=== PATIENT | male | born 1995 | race Caucasian/White ===

== ENCOUNTER 2019-09-20 01:05 | Inpatient (IN) | payer OTHER ==
[~2019-09-20] VITALS: Ht 170.2 cm; Wt 108.4 kg
[2019-09-20] VITALS (77 sets, daily range): BP systolic 38–155; BP diastolic 14–100
[2019-09-20] MEDS ORDERED: DOBUTamine 500 MG/D5W PREMIX 250 ML IV ONE ×2 (01:23→01:35)
[2019-09-20] MEDS ORDERED: AMIODARONE 150 MG/3 ML VIAL IV ONE (01:29)
[2019-09-20] MEDS ORDERED: AMIODARONE 150 MG in DEXTROSE 5% 100 ML IV ONE (01:35)
[2019-09-20] MEDS ORDERED: AMIODARONE 450 MG in DEXTROSE 5% 250 ML IV ONE (01:35)
--- NOTE | 2019-09-20 01:49 | NUR ---
0105 PATIENT BROUGHT IN BY PARAMEDICS FULL ARREST. PATIENT BEING BAGGED WITH 100% AND CPR BEING DONE. PATIENT WAS INTUBATED WITH SIZE 8 TUBE AT 22 LIP. UPON ROSC PATIENT PLACED ON VENT. AC 18 VT 550 PEEP 5 100% FIO2
[2019-09-20 01:52] LABS: EOSINOPHILS # (AUTO) 0.1 K/uL (0-0.4); HEMOGLOBIN 13.1 g/dL (12.0-18.0); MEAN CORPUSCULAR VOLUME 96.3 fL (80-94); MONOCYTES # (AUTO) 0.6 K/uL (0.8-1.0); RED CELL DISTRIBUTION WIDTH 16.1 % (11.6-13.7)
[2019-09-20 02:02] LABS: BASOPHILS % (AUTO) 0.2 % (0.0-2.0); EOSINOPHILS % (AUTO) 0.4 % (0.0-4.0); LYMPHOCYTES # (AUTO) 10.8 K/uL (2.0-11.5); MEAN CORPUSCULAR HEMOGLOBIN 30 pg (27-31); MEAN CORPUSCULAR HGB CONC 31 g/dL (33-37); MONOCYTES % (AUTO) 3.6 % (1.7-9.3); NEUTROPHILS # (AUTO) 4.3 K/uL (1.8-7.7); NEUTROPHILS % (AUTO) 27.4 % (42.2-75.2); PLATELET COUNT (AUTO) 257 K/uL (140-450); RED BLOOD CELL COUNT(AUTO) 4.45 MIL/uL (4.20-6.10)
[2019-09-20 02:12] LABS: LYMPHOCYTES % (AUTO) 68.4 % (20.5-51.1); WHITE BLOOD COUNT (AUTO) 15.8 K/uL (4.8-10.8)
[2019-09-20 02:13] LABS: HEMATOCRIT 39.3 % (36-52)
--- NOTE | 2019-09-20 02:15 | NUR ---
BASE ON X'RAY, PER DR. FALLON, ETT WAS PUSHED IN FROM 22CM @ LIP TO 26 CM. AIRWAY PATENT. PT IN NO RESPIRATORY DISTRESS. WILL CONTINUE TO MONITOR.
[2019-09-20] MEDS ORDERED: NOREPINEPHRINE 4 MG in DEXTROSE 5% 250 ML IV ONE (02:20)
[2019-09-20 02:21] LABS: ALBUMIN 2.9 g/dL (3.4-5.0); ASPARTATE AMINOTRANSFERASE 758 U/L (15-37); CARBON DIOXIDE 22.1 mmol/L (21-32); CHLORIDE 103 mmol/L (98-107); CREATININE 2.1 mg/dL (0.6-1.3); GFR ARICAN-AMERICAN 48 mL/min (>90); GLUCOSE 322 mg/dL (74-106); POTASSIUM 3.1 mmol/L (3.5-5.1); SODIUM SERUM 149 mmol/L (136-145); TOTAL BILIRUBIN 0.2 mg/dL (0.0-1.0); UREA NITROGEN, BLOOD 6 mg/dL (7-18)
[2019-09-20 02:24] LABS: SALICYLATE < 2.8 mg/dL (2.8-20.0)
[2019-09-20] MEDS ORDERED: NOREPINEPHRINE 4 MG/4 ML VIAL IV ONE ×2 (02:25)
[2019-09-20 02:27] LABS: ACETAMINOPHEN < 0.5 ug/ml (10-30)
[2019-09-20 02:34] LABS: BARBITURATE, URINE NEG. ng/ml (NEG <=200); BENZODIAZEPINE, URINE NEG. ng/mL (NEG <=200); CANNABINOID, URINE NEG. ng/mL (NEG <=50); COCAINE, URINE NEG. ng/mL (NEG <=300); OPIATE, URINE NEG. ng/mL (NEG <=2000); PHENCYCLIDINE SCREEN,URINE NEG. ng/mL (NEG <=25)
--- NOTE | 2019-09-20 02:45 | NUR ---
BASES ON ABG RESULTS RR WAS INCREASED FOR [address] FALLON. Fi02 WAS TITRATED BASED ON RT PROTOCOL. WILL CONTINUE TO MONITOR.
[2019-09-20] MEDS ORDERED: SODIUM BICARBONATE 8.4% PFS 50 MEQ/50 ML SYR IVP ONE (02:50)
[2019-09-20] MEDS ORDERED: NACL 0.9% 1,000 ML IV SCH ×2 (03:10→12:05)
[2019-09-20] MEDS ORDERED: ONDANSETRON 4 MG/2 ML VIAL IM/IVP PRN (03:10)
[2019-09-20] MEDS ORDERED: MORPHINE SULFATE 2 MG/ML SYR IVP PRN (03:10)
[2019-09-20] MEDS ORDERED: DOCUSATE SODIUM 100 MG GELCAP PO PRN (03:10)
[2019-09-20] MEDS ORDERED: ZOLPIDEM 5 MG TAB PO PRN (03:10)
[2019-09-20] MEDS ORDERED: HYDROcodone/APAP 5/325 MG 1 TAB TAB PO PRN (03:10)
[2019-09-20] MEDS ORDERED: ACETAMINOPHEN 325 MG TAB PO PRN ×2 (03:10→04:25)
[2019-09-20] MEDS ORDERED: LORazepam 2 MG/ML VIAL IM/IVP PRN (03:10)
[2019-09-20] MEDS ORDERED: POTASSIUM CHL 20 MEQ/NACL 0.9% 1,000 ML IV ONE (03:20)
[2019-09-20] MEDS ORDERED: NACL 0.9% 1,000 ML IV ONE (03:20)
[2019-09-20] MEDS ORDERED: POTASSIUM CHL 20 MEQ/ 1/2 NS 1,000 ML IV ONE ×2 (03:29→03:30)
[2019-09-20] MEDS ORDERED: LORazepam 2 MG/ML VIAL IVP PRN ×2 (04:25→11:15)
[2019-09-20] MEDS ORDERED: ONDANSETRON 4 MG/2 ML VIAL IVP PRN (04:25)
[2019-09-20] MEDS ORDERED: SODIUM BICARBONATE 8.4% PFS 50 MEQ/50 ML SYR IVP SCH (04:35)
[2019-09-20] MEDS ORDERED: PROPOFOL 1000 MG/100 ML PREMIX 100 ML IV ONE ×2 (04:41→04:50)
[2019-09-20] MEDS ORDERED: LEVOFLOXACIN 750 MG/D5W PREMIX 150 ML IV SCH (05:00)
--- NOTE | 2019-09-20 05:27 | NUR ---
[address] CHA. CHANGE VENT SETTINGS TO AC 20 VT 450 PEEP 5 50%FIO2
--- NOTE | 2019-09-20 05:30 | NUR ---
RECEIVED PT FROM ED NURSE CALVIN. PT NON RESPONSIVE @ THIS TIME BILATERAL EYES FIXED DILATED@ THIS TIME. 8.0ETT TO VENT @ 26 CM. LUNGS DIMINISHED, AYALA IN PLACE CLEAR YELLOW URINE. SKIN INTACT. PROPOFOL DRIP @ 5 MCG/KG/MIN @ THIS TIME. LEVOPHED DRIP @ 2 MCG/KG/MIN VIA R AC AMIODARONE DRIP RUNNING @ 1 MG/MIN PER PROTOCOL VIA L AC R LEG IO IN PLACE WITH IVF INFUSING . BED LOCKED IN LOWEST POSITION
--- NOTE | 2019-09-20 05:33 | NUR ---
0515 PATIENT TRANSFERRED TO ICU 3 VIA BAGGING. PLACED PT BACK ON VENT AC 20 VT 450 PEEP 5 AT 50%
--- NOTE | 2019-09-20 07:30 | NUR ---
BEDSIDE REPORT RECIEVED FROM CUTTING MACHINE OPERATOR NURSE, PT SEDATED ON PROPOFOL 15MCG/KG/MIN, PUPILS FIXED AND DILATED AT 6MM, NO REFLEX NOTED, DOES NOT RESPOND TO PAIN, ON ECOLOGICAL RISK ASSESSOR AFIB AT HR 144, BP 117/72, RR 20, 100% O2SAT, ETT TO VENT, 8FR, 26CM AT LIP, AC 40% FIO2, VT 450, RR 20, PEEP 5, BREATH SOUNDS CLEAR BILAT, OGT IN PLACE, ABD SOFT, NON DISTENDED, AYALA CATH DRAINING TO GRAVITY, PIV TO RAC 18G, LAC 18G, IO IN PLACE TO R LOWER EXT, PROPOFOL, LR AT 100ML/HR, AMIODARONE DRIP AT 1MG/MIN (33.33ML/HR), POC REVIEWED, ALL SAFETY MEASURES IN PLACE, WILL CONTINUE TO MONITOR.
[2019-09-20] MEDS: LACTATED RINGERS 1,000 ML IV SCH ×2 (07:50→14:25)
--- NOTE | 2019-09-20 08:15 | NUR ---
DR APPIAH AT BEDSIDE
[2019-09-20] MEDS ORDERED: DILTIAZEM 25 MG/5 ML VIAL IVP ONE ×2 (08:29→11:25)
--- NOTE | 2019-09-20 08:35 | NUR ---
CARDIZEM IVP GIVEN FOR AFIB RVR HR 138, BP113/73
--- NOTE | 2019-09-20 08:37 | NUR ---
PROPOFOL TITRATED DOWN TO 10MCG/MIN (4.62ML/HR) FOR RASS -4 Addendum: 09/20/19 at 2052 by Emely Garvin RN LATE ENTRY SATHYA ASIF -
--- NOTE | 2019-09-20 08:55 | NUR ---
MOTHER AT BEDSIDE
--- NOTE | 2019-09-20 09:00 | NUR ---
LATE ENTRY MEDITECH DOWN - PROPOFOL DECREASED TO 5MCG/MIN (2.31ML/HR) FOR RASS -4
[2019-09-20] MEDS ORDERED: LORazepam 2 MG/ML VIAL ONE (09:54)
--- NOTE | 2019-09-20 09:55 | NUR ---
ATIVAN GIVEN 2MG IVP FOR HR 172 POSSIBLE ETOH WITHDRAW
--- NOTE | 2019-09-20 10:24 | NUR ---
RADIOLOGY CRITICAL REPORT FROM DR KAHN TAKEN BY NURSE BLACK, + SUBARACHNOID BLEED DR APPIAH PAGED
--- NOTE | 2019-09-20 10:30 | NUR ---
KEPPRA 500MG IVPB STARTED
--- NOTE | 2019-09-20 10:34 | NUR ---
CALLED MOTHER AND NOTIFIED HER OF PLAN TO TRANSFER TO HIGHER LEVEL OF CARE FOR BLEED
--- NOTE | 2019-09-20 10:35 | NUR ---
DR APPIAH NOTIFIED OF CT RESULT, TRANSFER TO HIGHER LEVEL OF CARE ORDERED.
--- NOTE | 2019-09-20 10:40 | NUR ---
DR FUENTES AT BEDSIDE
--- NOTE | 2019-09-20 10:51 | NUR ---
DR SIMONS CALLED, CT HEAD RESULT REPORTED, EEG ORDERED, NOTIFIED OF PLAN TO TRANSFER TO HIGHER LEVEL OF CARE.
--- NOTE | 2019-09-20 10:54 | NUR ---
DISCHARGE PLANNING: RECEIVED AN ORDER TO TRANSFER FOR HIGHER LEVEL OF CARE FOR SUBARACHNOID HEMORRHAGE. ORDER AND CLINICALS FAXED TO [facility], [facility], [facility], [facility] AND [facility]. CONTACTED [facility] AT [phone], ABLE TO SPEAK TO LARA. PROVIDED HIM ALL THE INFORMATION HE NEEDED. HE STATED HE WILL OPEN THE CASE AND TO GO AHEAD AND FAX REFERRAL TO [phone]. CONTACTED [facility] AT [phone], ABLE TO SPEAK TO JAYLON. SHE CONFIRMED THAT SHE RECEIVED THE REFERRAL. PROVIDED HER MORE INFORMATION REGARDING THE PATIENT. I ALSO PROVIDED HER OF DR. APPIAH'S CELL PHONE NUMBER [phone]. KARINE OF [facility] MADE AWARE. Addendum: 09/20/19 at 1147 by Lisa Abarca CONTACTED [facility] TRANSFER CENTER AT [phone], ABLE TO SPEAK TO DANE. SHE STATED SHE DID NOT GET THE PACKET YET BUT WILL CALL ME BACK ONCE RECEIVED. CONTACTED [facility] AT [phone], ABLE TO SPEAK TO [facility]. SHE CONFIRMED THAT THEY RECEIVED THE REFERRAL HOWEVER THEY DO NOT HAVE BEDS AT THIS TIME. Addendum: 09/20/19 at 1208 by Lisa Abarca CM PER KARINE OF [facility], OK TO SEND REFERRAL TO [facility]. REFERRAL SENT TO [facility] AT [phone]. WILL FOLLOW UP. Addendum: 09/20/19 at 1217 by Lisa Abarca CM PER JAYLON OF [facility], THEY ARE DECLINING THE CASE 2/2 TO ANOXIC BRAIN INJURY AND THEIR IS NOTHING THEY CAN DO TO THIS PATIENT. SHE ALSO STATED THAT SHE SPOKE TO DR. APPIAH WELL. Addendum: 09/20/19 at 1237 by Lisa Abarca CM LUZ MARINA AT [facility] CONFIRMED THAT THEY HAVE RECEIVED THE REFERRAL. PROVIDED HER WITH AUTH NUMBER [id number]. SHE STATED SHE WILL START REFERRING THIS CASE. AND WILL CALL ME BACK FOR UPDATES. RECEIVED A CALL FROM SHANNON OF [facility], GETTING MORE INFORMATION REGARDING THIS PATIENT. PROVIDED HER WITH THE AUTH WELL. WILL FOLLOW UP. Addendum: 09/20/19 at 1322 by Lisa Abarca CM RECEIVED A CALL FROM ICU CHARGE NURSE INFORMING ME THAT DR. APPIAH WANTS TO CANCEL THE ORDER. SHE STATED THAT DR. SIMONS DISCUSSED THE EEG RESULTS TO DR APPIAH. WILL WAIT FOR ORDER TO CANCEL REFERRALS Addendum: 09/20/19 at 1436 by Lisa Abarca CM KARINE OF [facility] MADE AWARE. Addendum: 09/21/19 at 1137 by Lisa Abarca LATE ENTRY FOR 09/20/2019: LUZ MARINA OF [facility], RENETTA OF [facility], LARA OF [facility] AND JAYLON OF [facility] MADE AWARE. Addendum: 09/21/19 at 1612 by Lisa Abarca CM THIS IS A 23 Y/O MALE PATIENT FROM HOME, WHO CAME IN DUE TO CARDIAC ARREST. PAST MEDICAL HISTORY INCLUDE ETOH ABUSE. INITIAL DIAGNOSIS OF CARDIAC ARREST. CURRENT LABS INCLUDE WBC 19.8, H/H 14.6/45.9, NA/K 143/5.2, BUN/CREA 31/3.6, MAG 1.9, ALB 2.6 AND TROP 8.734. SPUTUM C/S AND MRSA NARES PENDING. NEURO, ID AND NEPHRO CONSULTS IN PLACE. ON AMIODARONE AND LEVOPHED DRIP. ORALLY INTUBATED, FIO2 40%. FC AND CENTRAL IN PLACE. Addendum: 09/22/19 at 1158 by Lisa Abarca 0913: RECEIVED A CALL FROM RANJEET (WIRE WRAPPER MACHINE OPERATOR) INFORMING ME THAT FAMILY FOR ICU3 WANTED TO SPEAK TO ME. MET WITH HER AT THE ICU LOBBY TOGETHER WITH JANICE (CM ACCOUNTING MACHINE MECHANIC). SHE STATED THAT SHE WANTS THE PATIENT TRANSFERRED TO ANOTHER HOSPITAL. SHE ALSO STATED THAT [facility] HAVE BEDS AVAILABLE. I ASKED IF WHO IN [facility] DID THEY SPEAK TO. SHE STATED SOMEONE INSIDE. I WENT IN ICU AND SPOKE TO PATIENT'S BEST FRIEND RYLEE AND PATIENT'S MOTHER'S BOYFRIEND. I ASKED THEM IF WHO DID THEY SPEAK TO AT [facility]. RYLEE (BEST FRIEND) STATED THAT HE HAVE NOT REACHED OUT TO [facility]. I EXPLAINED IT TO THEM THAT WE HAVE A PROCESS TO FOLLOW FOR TRANSFER AND IS ABLE TO VERBALIZE UNDERSTANDING. I DISCUSSED WITH HIM THAT NEUROLOGIST AND BATTER SCALER HAVE DISCUSSED THIS WITH THE PATIENT'S PARENTS AND SISTER. I ALSO INFORMED HIM THAT I CANNOT DISCUSS ANYTHING FURTHER WITH HIM THE CASE BECAUSE HE'S NAME IS NOT ON OUR LIST. 1010: RECEIVED ANOTHER CALL FROM RANJEET (WIRE WRAPPER MACHINE OPERATOR) THAT THE FAMILY IS REQUESTING AGAIN TO SPEAK TO ME AND THEY ARE WAITING IN THE [place]. WENT IN THE [place] AND SPOKE TO THE PATIENT'S MOTHER ALPESH. I INFORMED HER THAT I DO NOT HAVE ANY UPDATES FOR HER YET. THAT I AM STILL WAITING FOR THE DOCTOR TO MAKE HIS ROUNDS. 1100: RECEIVED A CALL FROM ICU CHARGE NURSE THAT DR. APPIAH IS IN THE UNIT AT THIS TIME. I DISCUSSED THE FAMILY'S WISHES TO TRANSFER THE PATIENT TO ANOTHER HOSPITAL DESPITE ALL THE EXPLANATIONS PROVIDED TO THEM. PER DR. APPIAH, THERE NO NEED TO TRANSFER THE PATIENT TO A HIGHER LEVEL OF CARE RE: POOR PROGNOSIS. HE ALSO STATED THAT HE HAD DISCUSSED SEVERAL TIMES TO THE PARENTS AND SISTER THE CASE, HOWEVER THE MOTHER IS STILL INSISTING. PER DR APPIAH, THE RECENT EEG SHOWED WORST THAN THE PREVIOUS EEG, AND DOES NOT THINK ANY FACILITY OR PHYSICIAN WILL ACCEPT THE CASE. 1120: CONTACTED KARINE OF [facility] AND INFORMED HER OF THE CASE. SHE STATED ON THEIR STAND POINT THEY CAN REFER THE PATIENT FOR LTACH OR HOSPICE. SHE SAID SHE CAN SEND A HOSPICE REP TO SPEAK TO THE FAMILY. 1130: RECEIVED A CALL FROM KARINE OF [facility], INFORMING THAT SHE SPOKE TO DR. APPIAH STATING THAT ONCE THE PATIENT IS TAKING OUT THE VENT, PATIENT WILL . Addendum: 09/23/19 at 1523 by Lisa Abarca 1450: MET WITH THE PATIENT'S SISTER DECLAN AT THE BEDSIDE WITH DR. SNOW, ICU CHARGE NURSE. ALL HER CONCERNS AND QUESTIONS WERE ANSWERED BY DR. SNOW. SHE ASKED WELL ABOUT THE TIME FRAME THE PATIENT WAS BROUGHT TO THE HOSPITAL, BECAUSE FROM HER UNDERSTANDING 911 WAS CALLED AT 2100 AND THE PATIENT WAS BROUGHT IN AT 0100. CHARGE NURSE SHOWED THE RECORDED TIME ON THE [facility] REPORT. SHE STATED "HONESTLY, TO TELL YOU GUYS, I KNOW THAT MY BROTHER IN NOT THERE ANYMORE. BUT MY MOM FEELS DIFFERENTLY. SHE FEELS THAT SHE WILL HAVE CLOSURE IF EVERYTHING HAS BEEN DONE FOR MY BROTHER." "I WILL TELL HER EVERYTHING THAT WE SPOKE ABOUT." SHE ALSO STATED "I WILL LET YOU KNOW WHAT SHE SAYS OR IF SHE WANT TO TALK TO YOU GUYS." AND STATED "THANK YOU FOR ALL THE INFORMATION YOU PROVIDED ME, AT LEAST NOW EVERYTHING HAVE BEEN ANSWERED." I PROVIDED HER WITH MY CONTACT INFO. Addendum: 09/23/19 at 1809 by Lisa Abarca CM REFERRAL SENT TO [facility] AT [phone]. THAIS HINES MADE AWARE. Addendum: 09/26/19 at 0839 by Lisa Abarca CM RECEIVED A VOICEMAIL FROM [facility]IA [facility], STATING THAT THE ARE DECLINING THE CASE DUE TO THEY ARE NOT CONTRACTED WITH THE INSURANCE.
[2019-09-20] MEDS ORDERED: DILTIAZEM 125 MG in DEXTROSE 5% 100 ML IV SCH ×2 (10:55→11:00)
[2019-09-20] MEDS ORDERED: MULTIVITAMIN-12 10 ML, THIAMINE 100 MG, MAGNESIUM SULFATE 50% 2,000 MG, FOLIC ACID 1 MG... IV SCH ×5 (10:55)
[2019-09-20] MEDS ORDERED: POTASSIUM CHLORIDE 20% 40 MEQ/15 ML UDC GT ONE (11:05)
[2019-09-20] MEDS ORDERED: PROPOFOL 1000 MG/100 ML PREMIX 100 ML IV PRN (11:10)
[2019-09-20] MEDS ORDERED: ACETAMINOPHEN 650 MG/20.3 ML UDC NG PRN (11:20)
--- NOTE | 2019-09-20 11:20 | NUR ---
RECTAL TEMP 103.4, WILL GIVE TYLENOL, ICE PACKS APPLIED, COLD BATH GIVEN
--- NOTE | 2019-09-20 11:30 | NUR ---
TEMP 103.4 RECTALLY, ICE PACK PLACED, TYLENOL GIVEN, URINE OUTPUT DECREASED ONLY 5ML LAST HOUR, DR TD TRAN.
[2019-09-20] MEDS ORDERED: CRUSHER, PILL MC ONE (11:40)
--- NOTE | 2019-09-20 12:00 | NUR ---
NS BOLUS STARTED PER DR APPIAH, COOL BATH GIVEN, COOLING BLANKET PLACED SET AT 95.0, RECTAL TEMP PROBE PLACED TEMP 105.0 AT THIS TIME.,
[2019-09-20] MEDS ORDERED: PANTOPRAZOLE 40 MG INJ VIAL IVP SCH (12:22)
--- NOTE | 2019-09-20 12:26 | NUR ---
SWEET DOUGH MIXER AT BEDSIDE
--- NOTE | 2019-09-20 13:27 | NUR ---
DR SIMONS AT BEDSIDE FOR EVAL, EEG COMPLETED
--- NOTE | 2019-09-20 13:28 | NUR ---
ECHO CARDIOGRAM TECH AT BEDSIDE
[2019-09-20 13:31] LABS: ANION GAP 32.8 (8-16); CARBON DIOXIDE 15.6 mmol/L (21-32); CREATININE 2.8 mg/dL (0.6-1.3); POTASSIUM 3.4 mmol/L (3.5-5.1)
--- NOTE | 2019-09-20 13:40 | NUR ---
CARDIZEM DRIP STARTED HR 133 AT THIS TIME
[2019-09-20 14:05] LABS: APPEARANCE,URINE CLEAR (CLEAR); BILIRUBIN,URINE NEGATIVE (NEGATIVE); BLOOD, URINE 3+ (NEGATIVE); COLOR,URINE YELLOW (YELLOW); LEUKOCYTE ESTERASE ,URINE TRACE (NEGATIVE); NITRITE, URINE NEGATIVE (NEGATIVE); UGLUCOSE NEGATIVE (NEGATIVE)
[2019-09-20 14:11] LABS: RBC,URINE 11-20 (MOD) /HPF (0-5)
[2019-09-20 14:12] LABS: HYALINE CASTS, URINE 0-10 /LPF (None Seen); WBC,URINE 0-5 /HPF (0-5)
--- NOTE | 2019-09-20 14:30 | NUR ---
DR APPIAH CALLED AND NOTIFIED OF INCREASED HR 145, DECREASED BP, WILL NOTIFY DR FUENTES PER DR APPIAH
--- NOTE | 2019-09-20 15:23 | NUR ---
SPOKE TO RN KIMBERLEY, FNS SERVICES NOT NEEDED AT THE MOMENT, PLEASE CONTACT RD IF THERE ARE ANY CHANGES IN STATUS. GARC[address]A [address]
--- NOTE | 2019-09-20 15:53 | NUR ---
DR FUENTES CALLED REPORTED DECREASED BP. ORDER FOR NEOSYNEPHRINE ORDERED
[2019-09-20] MEDS ORDERED: PHENYLEPHRINE 10 MG/ML VIAL IV ONE (15:55)
[2019-09-20] MEDS ORDERED: PHENYLEPHRINE 10 MG/ML VIAL IV PRN (16:00)
[2019-09-20] MEDS ORDERED: NOREPINEPHRINE 4 MG in DEXTROSE 5% 250 ML IV PRN (16:15)
[2019-09-20] MEDS ORDERED: PHENYLEPHRINE 10 MG in NACL 0.9% 250 ML IV PRN (16:20)
--- NOTE | 2019-09-20 18:00 | NUR ---
CENTRAL LINE PLACED TO RIGHT IJ BY DR APPIAH.
--- NOTE | 2019-09-20 18:12 | NUR ---
DR APPIAH AND MOTHER/FATHER/SISTER DISCUSSING CONDITION AND POC.
[2019-09-20] MEDS: NOREPINEPHRINE 16 MG in DEXTROSE 5% 250 ML IV PRN (19:05)
[2019-09-20] MEDS: PHENYLEPHRINE 40 MG in NACL 0.9% 250 ML IV PRN (19:06)
--- NOTE | 2019-09-20 19:20 | NUR ---
REPORT RECEIVED FROM AM NURSE AT BEDSIDE. PT IS IN UNSTABLE CONDITION, COMATOSE, UNRESPONSIVE, AND VEGETATIVE STATE. AAOX0 WITH PUPILS FIXED AND COMPLETELY DILATED. NO RESPONSE TO VERBAL, PHYSICAL, OR PAIN. PT UNABLE TO RESPOND TO PAIN. PT HAD A SUBARACHNOID HEMORRHAGE AND ENOXIC BRAIN INJURY. NO SOB ON ET TUBE 8FR TO MECHANICAL VENTILATOR. VENT SETTINGS ARE A/C FIO2@40%, VT 450, RR 15, PEEP 5. AFEBRILE@98.8. PT FALL RISK, PT HAS RECTAL TUBE, PT HAS AYALA WITH LOW URINE OUTPUT. NG TUBE@LOW INTERMITTENT SUCTIONING. PT IV R WRIST 20G RUNNING LR@100ML/HR AND BANANA BAG@100ML/HR PATENT AND INTACT. IO SL PATENT AND INTACT. L HAND 20G SL PATENT AND INTACT. R AC 18G RUNNING AMIODARONE@0.5ML/HR PATENT AND INTACT. L AC 18G SL PATENT AND INTACT. R IJ TRIPLE LUMEN CENTRAL LINE RUNNING ZOFIA-SYNEPHRINE@150MCG/MIN AND LEVOPHED@30MCG/MIN. 3RD LINE SL ALL PATENT AND INTACT. SKIN WARM, DRY, AND INTACT WITH NO OPEN WOUNDS. BED LOCKED IN LOW POSITION. SAFETY PRECAUTION IN PLACE. Addendum: 09/20/19 at 2323 by Graham Marrufo RN PT HAS RECTAL THERMOMETER NOT RECTAL TUBE.
[2019-09-20] MEDS: levETIRAcetam 500 MG in NACL 0.9% 100 ML IV SCH (20:10)
--- NOTE | 2019-09-20 20:10 | NUR ---
JOHN MCNEILL AND RUNNING. PT TOLERATING WELL.
--- NOTE | 2019-09-20 21:30 | NUR ---
FAMILY AND FRIENDS VISITING PATIENT. PT IS UNRESPONSIVE AND COMATOSE.
--- NOTE | 2019-09-20 22:50 | NUR ---
ZOFIA TITRATED DOWN DUE TO BP MAINTAINED>90SBP. BP 112/70 AND HR 112. WILL CONTINUE TO MONITOR.
--- NOTE | 2019-09-20 23:00 | NUR ---
CALLED Ezekiel NORMAN ABOUT CONTINUATION OF AMIODARONE. INFORMED HIM PT IS IN A SINUS RHYTHM AND HIS HR IS BETTER CONTROLLED AROUND 110-115BPM. MD ORDERED TO CONTINUE AMIODARONE UNTIL EXPIRES.
[2019-09-20] MEDS ORDERED: AMIODARONE 450 MG/9 ML VIAL IV ONE (23:29)
[2019-09-21] VITALS (100 sets, daily range): BP systolic 104–143; BP diastolic 53–87
[2019-09-21] MEDS: AMIODARONE 450 MG in DEXTROSE 5% 250 ML IV SCH ×2 (00:24→14:44)
--- NOTE | 2019-09-21 00:24 | NUR ---
NEW AMIODARONE BAG HUNG AND RUNNING.
[2019-09-21] MEDS: PHENYLEPHRINE 40 MG in NACL 0.9% 250 ML IV PRN (00:27)
--- NOTE | 2019-09-21 00:27 | NUR ---
NEW BAG ZFOIA HUNG AND RUNNING.
--- NOTE | 2019-09-21 00:35 | NUR ---
ZOFIA TITRATED DOWN DUE TO BP MAINTAINED>90SBP. BP 130/78 AND HR 111. WILL CONTINUE TO MONITOR.
--- NOTE | 2019-09-21 02:20 | NUR ---
ZOFIA ON HOLD DUE TO SBP MAINTAINED>90. CURRENT BP 130/80 AND HR 111. WILL CONTINUE TO MONITOR.
[2019-09-21] MEDS: NOREPINEPHRINE 16 MG in DEXTROSE 5% 250 ML IV PRN (04:00)
--- NOTE | 2019-09-21 04:00 | NUR ---
NEW BAG WALTER HUNG AND RUNNING. WILL CONTINUE TO MONITOR.
--- NOTE | 2019-09-21 05:30 | NUR ---
PT CLEANED AND TURNED.
--- NOTE | 2019-09-21 05:35 | NUR ---
IO IV REMOVED.
[2019-09-21 05:55] LABS: HEMATOCRIT 45.9 % (36-52); HEMOGLOBIN 14.6 g/dL (12.0-18.0); MEAN CORPUSCULAR HEMOGLOBIN 29 pg (27-31); MEAN CORPUSCULAR HGB CONC 32 g/dL (33-37); MEAN CORPUSCULAR VOLUME 92.1 fL (80-94); PLATELET COUNT (AUTO) 255 K/uL (140-450); RED BLOOD CELL COUNT(AUTO) 4.99 MIL/uL (4.20-6.10); RED CELL DISTRIBUTION WIDTH 16.2 % (11.6-13.7)
--- NOTE | 2019-09-21 05:55 | NUR ---
LEVO TITRATED DOWN DUE TO MAINTAINED SBP>90. BP 127/75. LEVO TITRATED TO 28MCG/MIN OR 26.25ML/HR.
[2019-09-21] MEDS: LACTATED RINGERS 1,000 ML IV SCH ×2 (06:00→15:37)
[2019-09-21 06:38] LABS: ANION GAP 13.8 (8-16); CARBON DIOXIDE 29.4 mmol/L (21-32); CREATININE 3.6 mg/dL (0.6-1.3); POTASSIUM 5.2 mmol/L (3.5-5.1); TOTAL BILIRUBIN 0.2 mg/dL (0.0-1.0)
[2019-09-21 06:39] LABS: ALBUMIN 2.6 g/dL (3.4-5.0)
[2019-09-21 06:49] LABS: WHITE BLOOD COUNT (AUTO) 19.8 K/uL (4.8-10.8)
[2019-09-21 06:58] LABS: LYMPHOCYTES % (MANUAL) 32 % (20-46); MONOCYTES % (MANUAL) 9 % (5-12)
--- NOTE | 2019-09-21 07:14 | NUR ---
REPORT GIVEN TO AM NURSE AT BEDSIDE. PT STILL UNRESPONSIVE.
--- NOTE | 2019-09-21 07:15 | NUR ---
RECEIVED REPORT FROM CANDY STARCH MOLD PRINTER NURSE MAURICIO AT BEDSIDE. PT IS IN VEGETATIVE STATE. PUPIL FIXED AND DILATED, NOT REACTIVE TO LIGHT. PT ETT SIZE 8 TO VENT WITH SETTING FIO2 40%, VT 450, RR15, PEEP 5. NO RESPONSE TO PAIN. FLACC 0. RECTAL TEMP 98.7. AYALA CATH IN PLACE, DRAINING CLEAR YELLOW URINE WITH SEDIMENTS. OGT TO LOW INTERMITTENT SUCTIONING. IV CATH R WRIST 20G AND LEFT HAND 20G, SL. DC'D IV CATH ON THE LEFT AC, TIP INTACT, PRESSURE APPLIED. R AC 18G RUNNING AMIODARONE AT 0.5ML/HR PATENT AND INTACT. R IJ TRIPLE LUMEN CENTRAL LINE, PATENT AND DRESSING INTACT, RUNNING LEVOPHED AT 28MCG/MIN. BED LOCKED IN LOWEST POSITION. FALL AND SAFETY PRECAUTION IN PLACE.
--- NOTE | 2019-09-21 08:00 | NUR ---
BED BATH GIVEN. REPOSITIONED PT, AND PLACED PT ON SCDS. Addendum: 09/21/19 at 1018 by Sunil Hagen RN HEELS ELEVATED WITH PILLOW.
--- NOTE | 2019-09-21 09:01 | NUR ---
ASKED DR APPIAH IF HE NEEDS TO ORDER ANY ABX, DR APPIAH REVIEWED PT'S CHART AND SAID NO.
--- NOTE | 2019-09-21 09:01 | NUR ---
DR APPIAH CAME AND ASSESSED PT. Addendum: 09/21/19 at 1024 by Sunil Hagen RN MADE DR APPIAH AWARE WBC ELEVATED.
[2019-09-21] MEDS: PANTOPRAZOLE 40 MG INJ VIAL IVP SCH (09:13)
[2019-09-21] MEDS: ASPIRIN 81 MG TAB.CHEW PO SCH (09:14)
[2019-09-21] MEDS: levETIRAcetam 500 MG in NACL 0.9% 100 ML IV SCH ×2 (09:14→21:47)
--- NOTE | 2019-09-21 09:15 | NUR ---
AM MEDS GIVEN. G TUBE CLAMPED.
--- NOTE | 2019-09-21 10:50 | NUR ---
G TUBE CONNECTED TO LOW INTERMITTENT SUCTION.
--- NOTE | 2019-09-21 11:00 | NUR ---
SCREEN FOR LOW KRYSTAL SCALE AT RISK, CONTINUE TO FOLLOW PRESSURE ULCER PREVENTION INTERVENTIONS. -TURN AND REPOSITION PATIENT Q 2H -ASSESS AND MONITOR SKIN CONDITION DURING POSITION CHANGE -OFFLOAD BILATERAL HEELS BY PLACING PILLOWS UNDER CALVES AT ALL TIMES, UNLESS OTHERWISE CONTRAINDICATED -PRESSURE REDISTRIBUTION BY PLACING PILLOWS AND OFFLOADING SACRALCOCCYX -KEEP SKIN CLEAN AND DRY AT ALL TIMES.
--- NOTE | 2019-09-21 11:30 | NUR ---
TUBE FEEDING JEVITY STARTED AT 20ML/HR, WATER FLUSH 100ML Q8H, WILL ADVANCE THE RATE IF PT TOLERATING WELL.
--- NOTE | 2019-09-21 12:35 | NUR ---
[facility] WANT[facility] ABG, CALLED DR SNOW. CHARGE NURSE ELIZABETH TALKED TO DR SNOW. DR SNOW SAID NO TO ABG ORDER.
--- NOTE | 2019-09-21 12:40 | NUR ---
NOTIFIED [facility] JUSTYNA THAT ATTENDING MD SAID NO TO ABG ORDER.
--- NOTE | 2019-09-21 12:45 | NUR ---
DR SIMONS CALLED IN, UPDATED HIM ON PT'S MENTAL STATUS AND VITALS. 2ND EEG IS ORDERED.
--- NOTE | 2019-09-21 15:22 | NUR ---
09/21/19 RD INITIAL ASSESSMENT COMPLETED PLEASE REFER TO NUTRITION ASSESSMENT UNDER CARE ACTIVITY FOR ESTIMATED NUTRITIONAL NEEDS. 1. CONSIDER INCREASING TUBE FEEDING INFUSION RATE TO JEVITY 1.2 @ 65 ML/HR X 24 W/ PROSOURCE QD -THIS WILL PROVIDE 1932 KCAL AND 101.5 GM OF PROTEIN, WHICH WILL MEET 100% OF ESTIMATED NUTRIENT NEEDS 2. CONSIDER FREE WATER FLUSH OF [address] TO FOLLOW-UP 2-3 DAYS, HIGH RISK GARCÍA FAUSTIN RD
--- NOTE | 2019-09-21 15:35 | NUR ---
OGT RESIDUAL 50ML. INCREASED FEEDING RATE TO 40ML/HR, CHANGED WATER FLUSH 100ML Q4H.
--- NOTE | 2019-09-21 19:30 | NUR ---
RECEIVED REPORT FROM AM NURSE . PT IS IN COMATOSE, UNRESPONSIVE, AND VEGETATIVE STATE. PUPILS FIXED AND COMPLETELY DILATED. NO RESPONSE TO VERBAL, PHYSICAL, OR PAIN. PT UNABLE TO RESPOND TO PAIN.PT ON ETT TO VENT.ON ET TUBE 8FR . VENT SETTINGS ARE A/C FIO2 @30 %, VT 450, RR 15, PEEP 5. NO S/S OF RESP DISTRESS, NO SOB NOTED. SUCTION GIVEN PRN. TACHY CARDIA ON MONITOR. CENTRAL LINE TO RIGHT IJ TRIPLE LUMENS WITH AMIODARONE AT O.5 MG/MIN,CONT ON LR AT 100 CC/HR TOLE WELL. OGT IN PLACE WITH JEVITY 1.2 AT 40 CC/HR RUNNING TO REACH GOAL 65 CC/HR. H2O AT 100 CC Q 4HRS.RESIDUAL AT THIS TIME 50 CC.CONT AT 40 CC/HR AT THIS TIME . ABD SOFT NON DISTENDED. T 99.5 CONTINUE ON COOLING MEASURE BLANKET.PERIPHERAL LINE TO RIGHT AC NO 18, RIGHT WRIST NO 20 INTACT WELL. SKIN INTACT. F/C IN PLACE WITH YELLOW CLEAR URINE. FAMILIES COME TO VISIT. ENCOURAGE FAMILY TO COME 2 PEOPLE AT THE TIMES.
--- NOTE | 2019-09-21 20:01 | NUR ---
TALKED TO DR. GRANT REGARDING FAMILY WANTS PT TO BE TRANSFERRED TO ANOTHER FACILITY, DR. GRANT TALKED TO DR. WISEMAN, AND STATED THAT THERE IS NOTHING ELSE THEY CAN DO IN THE OTHER FACILITY EVEN IF WE TRANSFER THE PT, TALKED TO THE FAMILY AGAIN EXPLAINING THE DR. MILES. FAMILY STATED THEY STILL WANT TO DO EVERYTHING FOR THE PT.
--- NOTE | 2019-09-21 20:25 | NUR ---
TALKED TO THE MOM OF PT WHO STATED THAT [facility] IS WILLING TO ACCEPT THE PT IN THE MORNING. TOLD THEM THAT WHEN THEY HAVE THE CONFIRMATION TO NOTIFY THE NURSE OR THE NURSING INDIRECT FIRE INFANTRYMAN IN THE MORNING SO WE CAN ARRANGE. WILL ENDORSE TO AM SHIFT TO FOLLOW UP.
--- NOTE | 2019-09-21 21:40 | NUR ---
KEPRA GIVEN ORDER
--- NOTE | 2019-09-21 22:30 | NUR ---
FANI FORTUNE STAFF FROM [facility] COME AND UPDATE ALL MEDS TO [facility] STAFF. PER FANI HE WILL LEFT AND ANOTHER [facility] STAFF WILL COME IN AM.
--- NOTE | 2019-09-21 23:50 | NUR ---
2 MULVANE LOAN AUDITOR COME TO CHECK ON PT AND ASKING TO CALL MD, INFORM THEM THAT THE ONE ANSWER WILL BE THE ENVELOPE STAMPING MACHINE OPERATOR, WHICH BETTER TO CALL IN AM TO PRIMARY MD FOR PT HISTORY. THEY REQUEST FOR ICU DIRECT NO FOR ANY QUESTION. NUMBER GIVEN. FAMILY SIGN PAPER OKAY TO RELEASE INFORMATION TO THE POLICE. WILL ENDORSE TO NEXT SHIFT.
[2019-09-22] VITALS (67 sets, daily range): BP systolic 85–123; BP diastolic 42–97
[2019-09-22] MEDS: LACTATED RINGERS 1,000 ML IV SCH ×2 (02:00→06:25)
--- NOTE | 2019-09-22 02:00 | NUR ---
FAMILY AT BED SIDE. PT IS STILL COMATOSE.
--- NOTE | 2019-09-22 05:00 | NUR ---
BLOOD DRAWN DONE, BED BATH, ORAL CARE AND F/C CARE GIVEN. KEPT PT CLEAN AND DRY,
[2019-09-22] MEDS: AMIODARONE 450 MG in DEXTROSE 5% 250 ML IV SCH ×2 (05:29→21:25)
[2019-09-22 06:48] LABS: BASOPHILS % (AUTO) 0.2 % (0.0-2.0); EOSINOPHILS % (AUTO) 0.1 % (0.0-4.0); HEMATOCRIT 39.2 % (36-52); HEMOGLOBIN 12.4 g/dL (12.0-18.0); LYMPHOCYTES # (AUTO) 1.1 K/uL (2.0-11.5); LYMPHOCYTES % (AUTO) 5.9 % (20.5-51.1); MEAN CORPUSCULAR HEMOGLOBIN 29 pg (27-31); MEAN CORPUSCULAR HGB CONC 32 g/dL (33-37); MEAN CORPUSCULAR VOLUME 92.2 fL (80-94); MONOCYTES # (AUTO) 1.2 K/uL (0.8-1.0); MONOCYTES % (AUTO) 6.8 % (1.7-9.3); NEUTROPHILS # (AUTO) 15.8 K/uL (1.8-7.7); PLATELET COUNT (AUTO) 122 K/uL (140-450); RED BLOOD CELL COUNT(AUTO) 4.25 MIL/uL (4.20-6.10); RED CELL DISTRIBUTION WIDTH 16.2 % (11.6-13.7); WHITE BLOOD COUNT (AUTO) 18.1 K/uL (4.8-10.8)
--- NOTE | 2019-09-22 06:59 | NUR ---
RECEIVED INTUBATED PT WITH A 8.0 ETT SECURED @24 TEETH/GUM ON VENT. SETTINGS AC/VC 15, VT 450, PEEP 5 AND FIO2 30%. PT SUCTIONED OBTAINED SCANT AMOUNT OF THIN CLEAR SECRETIONS, PT HAS NO ACTIVE GAG REFLEX. PT NOT IN ANY DISTRESS AT THIS TIME. VENT IS PLUGGED INTO A RED OUTLET WITH ALARMS ON AND FUNCTIONING. WILL CONTINUE TO MONITOR.
--- NOTE | 2019-09-22 07:10 | NUR ---
RECEIVED REPORT FROM WARNING ANALYST NURSE ARRON AT BEDSIDE. PT IS IN VEGETATIVE STATE. PUPIL FIXED AND DILATED, NOT REACTIVE TO LIGHT. PT ETT SIZE 8 TO VENT WITH SETTING FIO2 30%, VT 450, RR15, PEEP 5. NO RESPONSE TO PAIN. FLACC 0. RECTAL TEMP 97.7. AYALA CATH IN PLACE, DRAINING CLEAR YELLOW URINE WITH SEDIMENTS. OGT TO LOW INTERMITTENT SUCTIONING. IV CATH R WRIST 20G, LEFT HAND 20G, AND R AC 18G, SL, PATENT AND INTACT. R IJ TRIPLE LUMEN CENTRAL LINE, RUNNING AMIODARONE AT 0.5ML/HR, LR AT 100ML/HR, PATENT AND DRESSING INTACT. BED LOCKED IN LOWEST POSITION. FALL AND SAFETY PRECAUTION IN PLACE.
[2019-09-22 07:12] LABS: ANION GAP 7.5 (8-16); CARBON DIOXIDE 32.7 mmol/L (21-32); POTASSIUM 5.2 mmol/L (3.5-5.1)
[2019-09-22 07:22] LABS: CREATININE 4.1 mg/dL (0.6-1.3)
--- NOTE | 2019-09-22 07:26 | NUR ---
REPORT GIVEN TO ALBER HINES AM SHIFT. PT STILL COMATOSE,STILL ON AMIODARONE DRIPS.
--- NOTE | 2019-09-22 08:05 | NUR ---
DEEP SUCTION PERFORMED, MINIMAL YELLOW SECRETION. PT SEEMS HAS NO COUGH REFLEX.
[2019-09-22] MEDS: PANTOPRAZOLE 40 MG INJ VIAL IVP SCH (08:22)
[2019-09-22] MEDS: ASPIRIN 81 MG TAB.CHEW PO SCH ×2 (08:22→08:44)
--- NOTE | 2019-09-22 08:44 | NUR ---
ASPIRIN NOT GIVEN DUE TO DECREASED PLT 122
--- NOTE | 2019-09-22 09:45 | NUR ---
DR HICKS CALLED IN, REPORTED BMP AND CK TO DR HICKS. DR HICKS ADJUSTED IVF TO NS 150ML/HR AND CHANGED TUBE FEEDING ORDER.
--- NOTE | 2019-09-22 09:47 | NUR ---
CALLED [id number], MADE THEM AWARE OF TUBE FEEDING ORDER HAS BEEN CHANGED. ASKED FOR RECOMMENDATION ON THE RATE, WAITING FOR CALL BACK.
[2019-09-22] MEDS: NACL 0.9% 1,000 ML IV SCH ×3 (10:02→23:09)
[2019-09-22] MEDS: levETIRAcetam 500 MG in NACL 0.9% 100 ML IV SCH ×2 (10:05→21:24)
--- NOTE | 2019-09-22 10:45 | NUR ---
PROSOURCE GIVEN VIA G TUBE, FOLLOWED BY 40ML H2O FLUSH
--- NOTE | 2019-09-22 11:13 | NUR ---
BILLY PROVIDED NEW RECOMMENDATIONS TO FLORA CAMPO, FOR NEPRO W/CARBSTEADY @ 35 ML/HR X 24 HOURS AND FREE WATER FLUSH PER PHYSICIAN. GARC[address]A [address]
--- NOTE | 2019-09-22 11:20 | NUR ---
DR APPIAH ASSESSED PT. ORDERED TO DC PERIPHERAL IVS. DC'D IV CATH ON THE RIGHT AC, RIGHT WRIST AND LEFT HAND, TIP INTACT. PRESSURE APPLIED.
--- NOTE | 2019-09-22 13:39 | NUR ---
PT NOT IN ANY DISTRESS AT THIS TIME, TOLERATING VENT SETTINGS WELL. WILL CONTINUE TO MONITOR.
[2019-09-22] MEDS: POLYVINYL ALCOHOL 1.4% OP 15 ML SOL OP SCH ×2 (13:50→17:01)
--- NOTE | 2019-09-22 13:50 | NUR ---
DR HICKS CAME AND TALKED TO PT'S BIOLOGICAL MOTHER AND BIOLOGICAL FATHER REGARDING PT'S CONDITION IN KIDNEY PERSPECTIVE.
--- NOTE | 2019-09-22 14:09 | NUR ---
CHANGED FEEDING FORMULA TO NEPRO AT 35ML/HR, WATER FLUSH TO 200ML Q4H.
--- NOTE | 2019-09-22 15:00 | NUR ---
DR SIMONS SPOKE TO PT'S BIOLOGICAL FATHER IN [place] ON THE PHONE. DR SIMONS DISCUSSED ABOUT CEREBRAL BLOOD FLOW TEST, WAITING FOR PT'S FAMILY'S DECISION WHETHER TO HAVE THE TEST DONE.
--- NOTE | 2019-09-22 15:05 | NUR ---
CALLED DR SIMONS AND ASKED IF MORE EEG IS NEEDED FOR TOMORROW. DR SIMONS SAID NO. WILL SEE IF PT'S FAMILY AGREE ON PERFORMING CEREBRAL BLOOD FLOW TEST.
--- NOTE | 2019-09-22 15:35 | NUR ---
HOSPICE NURSE BRAD FROM [facility] CAME AND EVALUATED PT. BRAD SAID WILL DISCUSS WITH PT'S PARENTS IN THE WAITING ROOM.
--- NOTE | 2019-09-22 17:15 | NUR ---
COSMETIC MAKER CAME PRAYING FOR THE PT.
--- NOTE | 2019-09-22 17:52 | NUR ---
PT REMAINS ON DOCUMENTED VENT SETTINGS. PT NOT IN ANY DISTRESS AT THIS TIME. VENT ALARMS REMAIN ON AND FUNCTIONING. ETT IS SECURE WITH A PATENT AIRWAY.
--- NOTE | 2019-09-22 19:30 | NUR ---
RECEIVED REPORT FROM DAY SHIFT RN, PT HAS EYES CLOSED, UNRESPONSIVE NO GAG REFLEX, PUPILS FIXED DILATED 6MM, LIMBS FLACCID. NSR 70S, S1 S2 NOTED. GENERALIZED NON PITTING EDEMA NOTED, +2, PALPABLE PERIPHERAL PULSES. 8.0 ETT TO VENT 26 @ LIP, LUNGS RHONCHI NOTED, THIN WHITE SECRETIONS VIA INLINE SUCTION NOTED. ABD SOFT NON DISTENDED, ACTIVE BOWEL SOUNDS, OGT IN PLACE, <20 ML RESIDUALS NOTED. AYALA CATH IN PLACE, CLEAR YELLOW URINE DRAINAGE NOTED. REDNESS NOTED TO L LATERAL SCALP, MD AWARE PER DAY SHIFT RN. RECTAL THERMOMETER PROBE IN PLACE, PT AFEBRILE @ THIS TIME. RIJ TRIPLE LUMEN IN PLACE, AMIODARONE DRIP RUNNING @ 0.5 MG/MIN CONTINUOUS PER GAS SUBSTATION OPERATOR ORDERS, IVF INFUSING. BED LOCKED IN LOWEST POSITION. SAFETY PRECAUTIONS IN PLACE.
--- NOTE | 2019-09-22 19:30 | NUR ---
RECEIVED PT FROM DAY SHIFT ON AN AC 15,450,+5,30%. VENT PLUGGED INTO RED OUTLET. BMV AT HEAD OF BED. ALARMS AUDIBLE AND WORKING. ETT 7.5 @24 GUM. WILL CONT TO MONITOR Addendum: 09/22/19 at 1953 by Carlin Brush RT ETT 8.0 @ 24 GUM
--- NOTE | 2019-09-22 20:00 | NUR ---
VAP ORAL CARE DONE, PT TURNED AND REPOSITIONED. MULTIPLE VISITORS @ BEDSIDE @ THIS TIME
--- NOTE | 2019-09-22 22:15 | NUR ---
VISITORS @ BEDSIDE. PT TURNED @ REPOSITIONED. HOB >30 DEGREES. NO ACUTE DISTRESS NOTED
--- NOTE | 2019-09-22 23:00 | NUR ---
[facility] [facility] @ BEDSIDE.
[2019-09-23] VITALS (102 sets, daily range): BP systolic 40–147; BP diastolic 22–94
--- NOTE | 2019-09-23 03:45 | NUR ---
AM CARE DONE, LINEN CHANGED. PT TURNED AND REPOSITIONED.
--- NOTE | 2019-09-23 05:05 | NUR ---
pt remains on documented settings. vent plugged into red outlet. bmv at bedside. ett 8.0 @ 24. will cont to monitor
[2019-09-23] MEDS: NACL 0.9% 1,000 ML IV SCH ×2 (05:50→11:59)
[2019-09-23 06:22] LABS: BASOPHILS % (AUTO) 0.1 % (0.0-2.0); EOSINOPHILS # (AUTO) 0.1 K/uL (0-0.4); EOSINOPHILS % (AUTO) 0.7 % (0.0-4.0); HEMATOCRIT 35.9 % (36-52); HEMOGLOBIN 11.4 g/dL (12.0-18.0); LYMPHOCYTES # (AUTO) 0.9 K/uL (2.0-11.5); LYMPHOCYTES % (AUTO) 6.8 % (20.5-51.1); MEAN CORPUSCULAR HEMOGLOBIN 29 pg (27-31); MEAN CORPUSCULAR HGB CONC 32 g/dL (33-37); MEAN CORPUSCULAR VOLUME 92.1 fL (80-94); MONOCYTES # (AUTO) 0.7 K/uL (0.8-1.0); MONOCYTES % (AUTO) 4.9 % (1.7-9.3); NEUTROPHILS % (AUTO) 87.5 % (42.2-75.2); PLATELET COUNT (AUTO) 109 K/uL (140-450); RED CELL DISTRIBUTION WIDTH 16.4 % (11.6-13.7); WHITE BLOOD COUNT (AUTO) 13.7 K/uL (4.8-10.8)
--- NOTE | 2019-09-23 06:45 | NUR ---
RT @ BEDSIDE, FIO2 INCREASED TO 70%.
[2019-09-23 07:16] LABS: ALBUMIN 1.8 g/dL (3.4-5.0); ANION GAP 10.4 (8-16); CARBON DIOXIDE 31.4 mmol/L (21-32); POTASSIUM 4.8 mmol/L (3.5-5.1); TOTAL BILIRUBIN 0.2 mg/dL (0.0-1.0)
[2019-09-23] MEDS: PHENYLEPHRINE 40 MG in NACL 0.9% 250 ML IV PRN ×2 (07:16→22:14)
--- NOTE | 2019-09-23 07:30 | NUR ---
BEDSIDE REPORT RECEIVED FROM WOOD BOX MAKER NURSE MAURI, PT UNRESPONSIVE, NO REACTION TO PAIN, PUPILS FIXED AND DILATED AT 6MM, NO REACTIONS TO LIGHT, NO GAG OR COUGH REFLEX, RESP VIA ETT 8FR, 24CM AT TEETH, VENT SETTING FIO2 70%, TV 450, RR 15, PEEP 5, BS COARSE THROUGHOUT, EQUAL CHEST EXPANSION, RIJ CENTRAL LINE IN PLACE, NS AT 150ML/HR, AMIO AT 0.5MG/MIN (16.66ML/HR), NEOSYNEPHRINE AT 50MCG/MIN ( 18.75 ML/HR) SITE WNL, OGT IN PLACE, NEPRO FEEDING ONGOING AT 35ML/HR, FWF 200ML/4HR, ABD SOFT, NON DISTENDED, AYALA CATH IN PLACE, DRAINING TO GRAVITY, SKIN WARM DRY COLOR WNL, SKIN INTACT, ALL SAFETY MEASURES IN PLACE, POC REVIEWED, WILL CONTINUE TO MONITOR.
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
--- NOTE | 2019-09-23 07:57 | NUR ---
RECEIVED ON A CARESCAPE R860 VENTILATOR PLUGGED INTO RED OUTLET TOLERATING WELL WITHOUT INCIDENT TO A ENDOTRACHEAL TUBE #8.0 SECURED AT 24cm TEETH/GUM LINE WITH AN ANCHOR FAST AMBU BAG NOTE AT BEDSIDE GOOD CHEST RISE ENDOTRACHEAL SUCTION FOR SMALL THICK BROWM SECRETIONS AIRWAY PATENT
[2019-09-23] MEDS: levETIRAcetam 500 MG in NACL 0.9% 100 ML IV SCH ×2 (08:35→21:00)
[2019-09-23] MEDS: POLYVINYL ALCOHOL 1.4% OP 15 ML SOL OP SCH ×3 (08:36→17:00)
[2019-09-23] MEDS: PANTOPRAZOLE 40 MG INJ VIAL IVP SCH (08:36)
[2019-09-23] MEDS: ASPIRIN 81 MG TAB.CHEW PO SCH (08:36)
--- NOTE | 2019-09-23 08:45 | NUR ---
SCHEDULED MEDS GIVEN, ORAL CARE DONE, RE POSITIONED
--- NOTE | 2019-09-23 10:22 | NUR ---
NO PULMONARY DISTRESS NOTED EQUAL CHEST RISE AND AERATION THROUGHOUT BILATERAL LUNG OWENS AIRWAY PATENT
--- NOTE | 2019-09-23 10:30 | NUR ---
DR HICKS CALLED FOR NEW ORDERS, CHANGE IVF TO D5W AT 150ML/HR, URINE OSMOLARITY AND URINE SODIUM TO BE TESTED AT [facility] FOR RESULTS TODAY, WILL CALL LAB TO ENSURE
[2019-09-23] MEDS: DEXTROSE 5% 1,000 ML IV SCH ×3 (10:58→23:55)
--- NOTE | 2019-09-23 10:59 | NUR ---
[facility] CALLED FOR UPDATE
--- NOTE | 2019-09-23 11:50 | NUR ---
NO SOB NOTED GOOD CHEST RISE ENDOTRACHEAL SUCTION FOR SMALL THIN PALE YELLOW SECRETIONS AIRWAY PATENT
--- NOTE | 2019-09-23 12:28 | NUR ---
09/23/19 RD FOLLOW UP COMPLETED PLEASE REFER TO NUTRITION ASSESSMENT UNDER CARE ACTIVITY FOR ESTIMATED NUTRITIONAL NEEDS. 1. RECOMMEND TO INCREASE TUBE FEEDING NEPRO TO 45 ML/HR X 24 HR -THIS WILL PROVIDE 1944 KCAL AND 87 GM OF PROTEIN WHICH MEETS 92% OF ESTIMATED KCAL NEEDS AND 100% OF PROTEIN NEEDS 2. CONTINUE FREE WATER FLUSH OF 200 ML Q4H PER PHYSICIAN 3. RD TO FOLLOW-UP 2-3 DAYS, HIGH RISK GARCÍA FAUSTIN RD
--- NOTE | 2019-09-23 13:50 | NUR ---
DR APPIAH AT BEDSIDE, WILL SWITCH FROM ZOFIA TO LEVO PER DR APPIAH
[2019-09-23] MEDS: NOREPINEPHRINE 16 MG in DEXTROSE 5% 250 ML IV PRN (14:09)
--- NOTE | 2019-09-23 14:40 | NUR ---
EQUAL CHEST RISE AND AERATION THROUGHOUT BILATERAL LUNG OWENS AIRWAY PATENT
--- NOTE | 2019-09-23 15:05 | NUR ---
DR SNOW AT BEDSIDE, SPEAKING WITH SISTER REGARDING PLAN OF CARE AND PT CONDITION. Addendum: 09/23/19 at 1539 by Emely Garvin RN AHSAN CHEN ALSO PRESENT, SISTER TO SPEAK/EXPLAIN AGAIN TO PT'S PARENTS REGARDING PROGNOSIS
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
--- NOTE | 2019-09-23 17:04 | NUR ---
DR LOAIZA AT BEDSIDE, OK TO DC AMIO DRIP AFTER START OF NGT AMIO.
[2019-09-23] MEDS ORDERED: AMIODARONE 200 MG TAB NG SCH (17:15)
--- NOTE | 2019-09-23 17:50 | NUR ---
STABLE GOOD CHEST RISE ENDOTRACHEAL TUBE SUCTION FOR COPIOUS THIN G[place]LEGOS SECRETIONS SATURATION 88% ON FIO2 OF 80% INCREASED FIO2 TO 90% KIMBERLEY/RN NOTIFIED
--- NOTE | 2019-09-23 18:30 | NUR ---
AMIODARONE DRIP DC'D AT THIS TIME.
--- NOTE | 2019-09-23 19:30 | NUR ---
RECEIVED REPORT FORM [facility] FOR CONTINUITY OF CARE. PT LYING IN BED, EYES CLOSED, UNRESPONSIVE TO PAINFUL STIMULI. PUPILS EQUAL AND FIXED @ 6MM. PT DOES NOT TRACK. RT IJ IN PLACE INFUSING D5 @ 150 ML/HR, LEVOPHED 12 MCG MIN OR 11.25 ML/HR. ETT IN PLACE WITH VENT SETTINGS FOLLOWS: FI02 90%, 450, 15, PEEP 5. LUNGS RHONCHI THROUGHOUT. RESPIRATORY AT BEDSIDE. THICK, CREAMY, SECRETIONS NOTED. SUCTIONED WITH MODERATE AMOUNT. OGT IN PLACE,+PLACEMENT VERIFIED VIA AIR BOLUS. APPROX 30CC RESIDUAL WITHDRAWN AND REPLACED. NEPHRO 40 ML/ HR RUNNING. AYALA IN PLACE DRAINING CLEAR, YELLOW, URINE TO GRAVITY. SKIN WARM, DRY AND INTACT. TEMP 97.9 VIA RECTAL PROBE. SAFETY PRECAUTIONS IN PLACE. BED LOW AND LOCKED. WILL CONTINUE TO MONITOR
--- NOTE | 2019-09-23 20:30 | NUR ---
LEVOPHED INCREASED DUE TO HYPOTENSION @ THIS TIME.
--- NOTE | 2019-09-23 20:40 | NUR ---
RADIOLOGY REPORTED CRITICAL VALUE. MD SMITH PAGED AT THIS TIME.
--- NOTE | 2019-09-23 21:10 | NUR ---
RECEIVED RETURN CALL FROM MD. MADE AWARE OF CRITICAL VALUES AND HYPOTENSION. STARTED ZOFIA-SYNEPHRINE, MINIMUM DOSE, WILL TITRATE NECESSARY.
--- NOTE | 2019-09-23 21:33 | NUR ---
2000 advanced et tube from 24cm to 27cm. will order xray for tube placement
--- NOTE | 2019-09-23 22:00 | NUR ---
REPOSITIONED. ORAL CARE PROVIDED. BED LOW AND LOCKED. SAFETY PRECAUTIONS IN PLACE. WILL CONTINUE TO MONITOR.
--- NOTE | 2019-09-23 22:04 | NUR ---
PHONE CALL TO DR SMITH; MADE AWARE PT ALREADY MAX ON LEVOPHED DRIP AND NEOSYNEPHRINE DRIP; ORDERED VASOPRESSIN DRIP (#3) AND EPINEPHRINE DRIP (#4)
[2019-09-23] MEDS ORDERED: PHENYLEPHRINE 10 MG/ML VIAL ONE ×2 (22:06→22:09)
--- NOTE | 2019-09-23 22:14 | NUR ---
2212 post xray advanced et tube from 27 to 29cm.
[2019-09-23] MEDS ORDERED: VASOPRESSIN 20 UNITS/ML VIAL ONE (22:20)
--- NOTE | 2019-09-23 22:30 | NUR ---
VASOPRESSIN STARTED @ THIS TIME DUE TO UNRESOLVING HYPOTENSION. MD AWARE OF SITUATION. FAMILY AT BEDSIDE. DISCUSSED S/E OF MEDICATION IN DEPTH. DISCUSSED CODE STATUS WITH FATHER. WILL FOLLOW-UP.
[2019-09-23] MEDS: VASOPRESSIN 20 UNITS in NACL 0.9% 250 ML IV SCH (22:32)
[2019-09-23] MEDS ORDERED: EPINEPHrine 1:1000 - 1 MG/ML AMP ONE (23:06)
[2019-09-23] MEDS: EPINEPHrine 1:1000 (1 mg/mL) 1 MG in DEXTROSE 5% 250 ML IV PRN (23:57)
[2019-09-24] VITALS (28 sets, daily range): BP systolic 52–82; BP diastolic 29–57
--- NOTE | 2019-09-24 | NUR ---
SMALL FORMED BM. CORNEL CARE PROVIDED. REPOSITIONED WITH PRESSURE AREAS OFFLOADED. FLACC 0. ALL NEEDS BEING MET. SAFETY PRECAUTIONS REMAIN IN PLACE. BED LOW AND LOCKED. WILL CONTINUE TO MONITOR.
--- NOTE | 2019-09-24 00:30 | NUR ---
EPINEPHRINE STARTED @ THIS TIME DUE TO UNRESOLVING HYPOTENSION. FAMILY REMAINS AT BEDSIDE. WILL CONTINUE TO MONITOR.
[2019-09-24] MEDS ORDERED: NOREPINEPHRINE 4 MG/4 ML VIAL IV ONE ×2 (00:58→05:54)
[2019-09-24] MEDS: DEXTROSE 5% 1,000 ML IV SCH (01:10)
[2019-09-24] MEDS: NOREPINEPHRINE 16 MG in DEXTROSE 5% 250 ML IV PRN ×2 (01:17→02:31)
[2019-09-24] MEDS ORDERED: EPINEPHrine 1:1000 - 1 MG/ML AMP ONE ×4 (02:01→07:30)
[2019-09-24] MEDS ORDERED: PHENYLEPHRINE 10 MG/ML VIAL ONE (02:04)
[2019-09-24] MEDS: EPINEPHrine 1:1000 (1 mg/mL) 1 MG in DEXTROSE 5% 250 ML IV PRN ×3 (02:20→05:48)
--- NOTE | 2019-09-24 02:20 | NUR ---
PHONE CALL TO DR GAMBOA; PULMO OPERATIONS DIRECTOR; MADE AWARE PT ALREADY MAX DOSE WITH LEVOPHED DRIP; ZOFIA SYNEPHRINE DRIP, VASOPRESSIN DRIP AND EPINEPHRINE DRIP; BP 62/42' SAID PT ALREADY ON 4 VASOPRESSORS; NO NEW ORDERS RECEIVED. PTS DAD AT BEDSIDE; UPDATED ON PTS PRESENT CONDITION.QUESTIONS ANSWERED.
[2019-09-24] MEDS: PHENYLEPHRINE 40 MG in NACL 0.9% 250 ML IV PRN ×2 (02:28→15:42)
--- NOTE | 2019-09-24 04:00 | NUR ---
[facility] CALLED AT THIS TIME. DISCUSSED FULL HISTORY.
[2019-09-24] MEDS ORDERED: VASOPRESSIN 20 UNITS/ML VIAL ONE (05:57)
[2019-09-24] MEDS: VASOPRESSIN 20 UNITS in NACL 0.9% 250 ML IV SCH (06:03)
--- NOTE | 2019-09-24 06:30 | NUR ---
LISA HANEY INITIATED @ THIS TIME DUE TO BRADYCARDIA @ 45, NO PULSES. SKIN CYANOTIC. FATHER AT BEDSIDE. SEE LISA HANEY FLOW-SHEET FOR FURTHER DETAILS.
--- NOTE | 2019-09-24 06:30 | NUR ---
CODE BLUE CALLED DUE TO HEART RATE LOW AND CPR WAS STARTED AND ACLS DRUGS GIVEN DR. AMIN AT BEDSIDE AND PT BACK ON VENT AT 0640 FAMILY AT BEDSIDE
[2019-09-24 06:51] LABS: CARBON DIOXIDE 27.2 mmol/L (21-32); POTASSIUM 5.2 mmol/L (3.5-5.1)
[2019-09-24 06:58] LABS: CREATININE 7.3 mg/dL (0.6-1.3)
[2019-09-24 07:26] LABS: MEAN CORPUSCULAR HGB CONC 30 g/dL (33-37)
--- NOTE | 2019-09-24 07:28 | NUR ---
rec'd pt on carescape vent settings ac 15 vt 450 peep 5 fio2 100% alarms on and audible and ambu bag at hob and vent is plugged into red outlet, b\s are coarse bilaterally sxn large amt of bloody secretions, pt is orally intubated with 8.0 at 29cm and pt is not alert
--- NOTE | 2019-09-24 07:30 | NUR ---
PT LYING IN BED, EYES CLOSED, ER MD AT BEDSIDE TO INSERT A-LINE. PER PM SHIFT RN. THEY JUST CODE PT. BEDSIDE MONITOR SHOWS HR 60S. RT HAS RIGHT IJ IN PLACE INFUSING 0.9% NS AT 1200 CC/HR, LEVOPHED 29.99 MCG/MIN= 28.12 ML/HR, VASOPRESSIN AT 0.04 UNITS/MIN, EPINEPHRINE AT 10 MCG/MIN AND ZOFIA-SYNEPHRINE AT 150 MCG/MIN=56.25 CC/HR . ETT IN PLACE WITH VENT SETTINGS FOLLOWS: FI02 100%, OE=892, 15, PEEP 5. RT AT BEDSIDE. OGT IN PLACE, RT AT BEDSIDE. AYALA CATH IN PLACE. MOTTLED SKIN, COOL TO TOUCH.
--- NOTE | 2019-09-24 07:32 | NUR ---
pt christiana to no pulses and cpr started and acls drugs pt back on vent at 0745 dr. jacobo at bedside
--- NOTE | 2019-09-24 07:40 | NUR ---
EPINEPHRINE 1 MG IN DEXTROSE 5% 250 ML WAS MIXED BY CHARGE NURSE CAREY DUE TO PHARMACY WAS NOT OPEN YET. WAS HUNG AT THIS TIME.
[2019-09-24] MEDS ORDERED: KCL 20 MEQ/WATER INJ PREMIX 0 ML IV ONE (07:42)
--- NOTE | 2019-09-24 08:00 | NUR ---
CHECKED PT. UNRESPONSIVE TO PAINFUL STIMULI. PUPILS FIXED @ 6MM NO REACTIVE.SUCTIONED PT WITH SMALL AMOUNT OF BLOOD TINGED SECRETION. NO GAG REFLEX. OGT IN PLACE, BEDSIDE MONITOR SHOWS HR 60S.
--- NOTE | 2019-09-24 08:00 | NUR ---
REPORT GIVEN TO [facility] FOR CONTINUITY OF CARE.
--- NOTE | 2019-09-24 08:03 | NUR ---
code blue pt christiana no pulses cpr started and acls drugs and dr jacobo at bedside, pt back on vent at 0807
--- NOTE | 2019-09-24 08:16 | NUR ---
Amara BURTON WILL COME TO SEE THE PATIENT.
[2019-09-24 08:17] LABS: HEMATOCRIT 38.4 % (36-52); HEMOGLOBIN 11.6 g/dL (12.0-18.0); MEAN CORPUSCULAR HEMOGLOBIN 30 pg (27-31); MEAN CORPUSCULAR VOLUME 97.8 fL (80-94); RED BLOOD CELL COUNT(AUTO) 3.93 MIL/uL (4.20-6.10); WHITE BLOOD COUNT (AUTO) 7.2 K/uL (4.8-10.8)
[2019-09-24 08:18] LABS: PLATELET COUNT (AUTO) 200 K/uL (140-450); RED CELL DISTRIBUTION WIDTH 16.3 % (11.6-13.7)
[2019-09-24 08:19] LABS: BASOPHILS % (MANUAL) 0 % (0-2); EOSINOPHILS % (MANUAL) 0 % (0-4); LYMPHOCYTES % (MANUAL) 20 % (20-46); METAMYELOCYTES % 3 % (0-0); MONOCYTES % (MANUAL) 5 % (5-12)
--- NOTE | 2019-09-24 08:45 | NUR ---
CODE BLUE INITIATED AT THIS TIME DUE TO BRADYCARDIA DECREASED TO 30S, NO PULSES. SEE CODE BLUE FLOW-SHEET FOR MORE DETAILS.
[2019-09-24] MEDS ORDERED: AMIODARONE 200 MG TAB NG SCH (09:00)
--- NOTE | 2019-09-24 09:15 | NUR ---
twila matamoros called dr. jacobo at bedside and cpr started and acls drugs given and dr. jacobo ended twila matamoros at 0917
--- NOTE | 2019-09-24 09:19 | NUR ---
DR. FALLON PRONOUNCED . EKG SHOWS ASYSTOLE WITHOUT CPR, UNABLE TO HEAR HR SOUND BY DOPPLER. DURING DAY SHIFT. @0739 A LINE SHOWS 266/230. NIBP 109/51. 0800 A LING SHOWS 298/109. @ 0838 NIBP 82/57. 0858 A-LINE SHOWS 248/240. BEDSIDE MONITOR WAS UNABLE TO READ BP OTHER TIME. TRIED TO DO MANUAL BP, BARELY HEAR ANYTHING.
--- NOTE | 2019-09-24 09:59 | NUR ---
CHETAN DALAL FROM [facility] IN UNIT TO ASK QUESTIONS.
--- NOTE | 2019-09-24 10:17 | NUR ---
CALLED DIE CAST OPERATOR, SPOKE TO ROBIN SANDERS. PER ROBIN, FAXED FACE SHEET,[facility] RECORD, H&P, ER NOTES, LABS AND EEG REPORT TO [phone].
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
--- NOTE | 2019-09-24 11:20 | NUR ---
CALLED HRIS MANAGER TO CHECK DOCUMENTS RECEIVED OR NOT. UNABLE TO SPEAK TO ROBIN SANDERS, AND PERSON WHO ANSWERED ME SAID ROBIN WILL CALL ME BACK.
--- NOTE | 2019-09-24 13:21 | NUR ---
CALLED LABOR COMMISSIONER AGAIN TO F/U. EVI ANSWERED AND SAID SHE WILL LET ROBIN SANDERS KNOW.
--- NOTE | 2019-09-24 13:55 | NUR ---
PT'S MOTHER STATED SHE WANTED TO DO AUTOPSY, EXPLAINED TO PT'S MOTHER IF IT IS SOCIAL WORK FACULTY MEMBER'S CASE, THEY WILL DO AUTOPSY. IF IT IS NOT THEIR CASE, SHE NEEDS TO PAY ALL THE FEES FOR AUTOPSY ON HER OWN. PT'S MOTHER VERBALIZED UNDERSTANDING.
--- NOTE | 2019-09-24 14:38 | NUR ---
ROBIN SANDERS CALLED FROM LOOM FIXER APPRENTICE'S OFFICE SPEAKING TO PT'S MOTHER.
--- NOTE | 2019-09-24 16:29 | NUR ---
RECEIVED PHONE CALL FROM [facility]. PER DUNCAN, PT IS A CANDIDATE FOR ORGAN DONATION.
--- NOTE | 2019-09-24 17:15 | NUR ---
called CHURCH HISTORY TEACHER, SPOKE TO BERNABE, NOTIFIED PT'S FAMILY WANTED TO KNOW WHICH TIME THEY CAN GET INFORMATION BACK. PER BERNABE, SHE WILL ASK CHURCH HISTORY TEACHER TO CALL ME BACK. WILL F/U
--- NOTE | 2019-09-24 17:30 | NUR ---
RECEIVED PHONE CALL FROM ROBIN SANDERS, THIS PT IS NOT THEIR CASE. CASE # [id number]. NOTIFIED PT'S MOTHER, PT'S MOTHER STATED SHE DOES NOT HAVE A MORTUARY YET, GAVE PT'S MOTHER SOME RECOMMENDATIONS, PT'S MOTHER STATED SHE WANTS TO CHOOSE BY THEMSELVES.
--- NOTE | 2019-09-24 20:00 | NUR ---
BODY CLEANED, PUT PT IN BODY BAG. NO PERSONAL BELONGINGS . ENDORSED PT TO CHARGE NURSE NONA.
--- NOTE | 2019-09-26 09:05 | NUR ---
LATE ENTRY FOR 09/22/19 SW/CM legal manager accompanied CM to meet with patient's mother and sister at their request. Family continued requesting to transfer patient to [facility] for assessment and/or possible intervention. CM informed family the request and records had been faxed to [facility] and they declined to accept t Addendum: 09/26/19 at 0919 by Sandra Pan CM [facility] declined to accept the case. CM attempted to inform family however mother was crying and was not understanding the records had been already faxed. This advertising copywriter (SARA) provided supportive counseling to mother, acknowledge her request and informed her the CM will also contact the insurance company to discuss the case and request assistance. Mother crying stated "I know he's going but I want him to on an operating table fighting for his life". SARA acknowledge mother's request and inform her that the welfare case worker will follow-up and update accordingly. SW/Drawer In discuss the case with CM and the plan was to contact [facility] and f/u with tertiary facilities. CM updated this advertising copywriter later during the day that [facility] was suggesting hospice services after learning about EEG results and extremely poor prognosis. SW/legal manager was informed by CM that multiple friends and family members were constantly requesting updates from CM and other staff. SW/Drawer In requested to update parents and sister only and have them update the rest of the family/friends due to privacy. GEORGE Augustin/AHSAN, Drawer In
== END 2019-09-24 09:19 | disposition expired | DRG 130 ==
LOC: MED 01:05 → EDBD 01:05 → MIC 04:31
PROVIDERS: ADMIT Hospitalist; ATTEND Hospitalist
PROC: 5A1955Z Respiratory Ventilation, Greater than 96 Consecutive Hours (ICD-10-PCS; principal; 2019-09-20)
PROC: 5A12012 Performance of Cardiac Output, Single, Manual (ICD-10-PCS; 2019-09-20)
PROC: 0BH17EZ Insertion of Endotracheal Airway into Trachea, Via Natural or Artificial Opening (ICD-10-PCS; 2019-09-20)
PROC: 5A2204Z Restoration of Cardiac Rhythm, Single (ICD-10-PCS; 2019-09-20)
PROC: 04HY32Z Insertion of Monitoring Device into Lower Artery, Percutaneous Approach (ICD-10-PCS; 2019-09-20)
PROC: 4A133B1 Monitoring of Arterial Pressure, Peripheral, Percutaneous Approach (ICD-10-PCS; 2019-09-20)
PROC: 02HV33Z Insertion of Infusion Device into Superior Vena Cava, Percutaneous Approach (ICD-10-PCS; 2019-09-21)
PROC: B548ZZA Ultrasonography of Superior Vena Cava, Guidance (ICD-10-PCS; 2019-09-21)
PROC: 5A12012 Performance of Cardiac Output, Single, Manual (ICD-10-PCS; 2019-09-24)
DX: J96.01 Acute respiratory failure with hypoxia (principal); I60.9 Nontraumatic subarachnoid hemorrhage, unspecified; I49.01 Ventricular fibrillation; N17.0 Acute kidney failure with tubular necrosis; R57.0 Cardiogenic shock; E86.0 Dehydration; I48.91 Unspecified atrial fibrillation; E87.5 Hyperkalemia; G93.1 Anoxic brain damage, not elsewhere classified; M62.82 Rhabdomyolysis; E87.0 Hyperosmolality and hypernatremia; I50.20 Unspecified systolic (congestive) heart failure; E87.6 Hypokalemia; F10.129 Alcohol abuse with intoxication, unspecified; R74.0 Nonspecific elevation of levels of transaminase and lactic acid dehydrogenase [LDH]; E87.8 Other disorders of electrolyte and fluid balance, not elsewhere classified; R73.9 Hyperglycemia, unspecified; H57.04 Mydriasis; R40.2430 Glasgow coma scale score 3-8, unspecified time; Z88.8 Allergy status to other drugs, medicaments and biological substances; Z81.8 Family history of other mental and behavioral disorders; Z83.3 Family history of diabetes mellitus; Z82.49 Family history of ischemic heart disease and other diseases of the circulatory system
CPT/HCPCS: 31500; 36415; 36600; 51702; 70450; 71045; 80048; 80053; 80305; 81001; 82550; 82553; 82803; 82948; 83735; 83935; 84295; 84300; 84484; 85025; 87070; 87081; 87186; 87205; 92950; 94002; 94003; 96374; 96375; 99291; A9153; C9113; G0480; G0482; J0171; J0282; J1953; J1956; J2060; J2370; J2704; J3411; J3475; J3480; J3490; J7030; J7042; J7060; J7120; Q0092